=== PATIENT | female | born 1945 | race African-American/Black ===

== ENCOUNTER → 2016-12-06 | Outpatient (CLI) | payer OTHER ==
[~2016-12-06] MED LIST: ASPI-496 PO; FENTANYL PF 100 MCG/2ML ONE; GABA300C10 PO; HYDR1TAB12 PO; LISI40TA PO; METF500T4 PO; MIDAZOLAM 1 MG/ML, 5ML ONE; NAPR220C2 PO; OMEP40CA6 PO; SIMV20TA3 PO
== END | disposition home or self-care (01) ==
LOC: RAD 07:04
PROVIDERS: ATTEND Nurse Practitioner
DX: M54.12 Radiculopathy, cervical region (principal)
CPT/HCPCS: 99156; 99157; J2250; J3010

== ENCOUNTER 2018-09-26 08:12 | Outpatient (CLI) | payer OTHER ==
[~2018-09-26 08:12] MED LIST changes: -FENTANYL PF 100 MCG/2ML ONE; -HYDR1TAB12 PO; +HYDR1TAB13 PO; +METF500T17 PO; -METF500T4 PO; -MIDAZOLAM 1 MG/ML, 5ML ONE
== END 2018-09-26 23:59 | disposition home or self-care (01) ==
LOC: RAD 08:12
PROVIDERS: ATTEND Nurse Practitioner
DX: Z02.9 Encounter for administrative examinations, unspecified (principal)

== ENCOUNTER 2018-11-14 08:35 | Day surgery (SDC) | payer OTHER ==
[~2018-11-14] VITALS: Ht 172.7 cm; Wt 116.5 kg
[2018-11-14] MEDS ORDERED: LACTATED RINGERS 1,000 ML IV SCH (09:15)
[2018-11-14] MEDS ORDERED: HYDR-2440 PO (09:44)
[2018-11-14 09:45] VITALS: BP 145/83
[2018-11-14] MEDS ORDERED: ONDANSETRON 2MG/ML, 2ML ONE (10:19)
[2018-11-14] MEDS ORDERED: PROPOFOL 10 MG/ML, 20ML ONE (10:19)
[2018-11-14 10:26] LABS: ALANINE AMINOTRANSFERASE 30 U/L (12-78); ALBUMIN 3.5 g/dL (3.4-5.0); ANION GAP 7 mmol/L (5-15); CALCIUM 9.1 mg/dL (8.5-10.1); CHLORIDE 108 mmol/L (98-107); CREATININE 0.94 mg/dL (0.55-1.02)
[2018-11-14 10:28] LABS: ALKALINE PHOSPHATASE 42 U/L (45-117); BILIRUBIN,TOTAL 0.7 mg/dL (0.2-1.0); TOTAL PROTEIN 7.2 g/dL (6.4-8.2)
[2018-11-14] MEDS ORDERED: FENTANYL PF 100 MCG/2ML ONE (10:30)
[2018-11-14] MEDS ORDERED: MEPERIDINE/PF 25MG/0.5ML IVPush PRN (11:30)
[2018-11-14] MEDS ORDERED: FENTANYL PF 100 MCG/2ML IV PRN (11:30)
[2018-11-14] MEDS ORDERED: HYDROmorphone 2 MG/ML, 1ML IVPush PRN (11:30)
[2018-11-14] MEDS ORDERED: HALOPERIDOL 5 MG/ML IV PRN (11:30)
[2018-11-14] MEDS ORDERED: PROMETHAZINE 25 MG/ML, 1ML IV PRN (11:30)
[2018-11-14] MEDS ORDERED: OXYcodone 5 MG/5 ML ORAL.SOL UDC PO PRN (11:30)
[2018-11-14] MEDS ORDERED: ACETAMINOPHEN 325 MG TABLET PO PRN (11:30)
[2018-11-14] MEDS ORDERED: ALBUTEROL SULFATE 2.5 MG/3 ML NPPB PRN (11:30)
[2018-11-14] MEDS ORDERED: hydrALAzine 20 MG/ML, 1ML IV PRN (11:30)
== END 2018-11-14 12:15 | disposition home or self-care (01) ==
LOC: OUT 08:35 → EDSTATUS 10:15 → OUT 12:15
PROVIDERS: ATTEND Nurse Practitioner
DX: M47.812 Spondylosis without myelopathy or radiculopathy, cervical region (principal); M54.2 Cervicalgia; J44.9 Chronic obstructive pulmonary disease, unspecified; Z79.899 Other long term (current) drug therapy; Z88.6 Allergy status to analgesic agent
CPT/HCPCS: 72141; 80053; 82962; 93005; J2405; J2704; J3010; J7120

== ENCOUNTER 2019-10-29 09:37 | Day surgery (SDC) | payer MEDICARE, OTHER ==
[~2019-10-29] VITALS: Ht 172.7 cm; Wt 115.1 kg
[~2019-10-29 09:37] MED LIST changes: +HYDR-2440 PO; +OMEP40CA42 PO; -OMEP40CA6 PO; +SIMV20TA19 PO; -SIMV20TA3 PO
[2019-10-29] MEDS ORDERED: LACTATED RINGERS 1,000 ML IV SCH (10:09)
[2019-10-29] MEDS ORDERED: AMLO10TA8 PO (10:14)
[2019-10-29] MEDS ORDERED: flovent (10:14)
[2019-10-29] MEDS ORDERED: METF500T17 PO (10:14)
[2019-10-29] MEDS ORDERED: ALBU2.5V NEB (10:14)
[2019-10-29 10:16] VITALS: BP 138/84
[2019-10-29] MEDS ORDERED: CHLORHEXIDINE 15 ML UDC MM ONE (10:30)
[2019-10-29] MEDS ORDERED: MIDAZOLAM 1 MG/ML, 2ML ONE (11:24)
[2019-10-29] MEDS ORDERED: SUCCINYLCHOLINE 20 MG/ML, 10ML ONE (11:30)
[2019-10-29] MEDS ORDERED: PROPOFOL 10 MG/ML, 20ML ONE (11:30)
[2019-10-29] MEDS ORDERED: ONDANSETRON 2MG/ML, 2ML ONE (11:30)
[2019-10-29] MEDS ORDERED: ACETAMINOPHEN 325 MG TABLET PO PRN (13:00)
[2019-10-29] MEDS ORDERED: OXYcodone 5 MG/5 ML ORAL.SOL UDC PO PRN (13:00)
[2019-10-29] MEDS ORDERED: DIAZEPAM 5 MG/ML, 2ML IVPush PRN (13:00)
[2019-10-29] MEDS ORDERED: LABETALOL 5MG/ML, 20ML IV PRN (13:00)
[2019-10-29] MEDS ORDERED: FENTANYL PF 100 MCG/2ML IV PRN (13:00)
[2019-10-29] MEDS ORDERED: MEPERIDINE/PF 25MG/0.5ML IVPush PRN (13:00)
[2019-10-29] MEDS ORDERED: hydrALAzine 20 MG/ML, 1ML IV PRN (13:00)
[2019-10-29] MEDS ORDERED: PROMETHAZINE 25 MG/ML, 1ML IV PRN (13:00)
[2019-10-29] MEDS ORDERED: ALBUTEROL SULFATE 2.5 MG/3 ML NPPB PRN (13:00)
[2019-10-29] MEDS ORDERED: HYDROmorphone 2 MG/ML, 1ML IVPush PRN (13:00)
[2019-10-29] MEDS ORDERED: KETOROLAC 30 MG/1 ML IV PRN (13:00)
== END 2019-10-29 14:10 | disposition home or self-care (01) ==
LOC: RAD 09:37 → EDSTATUS 11:30 → OUT 14:10
PROVIDERS: ATTEND Nurse Practitioner
DX: M47.812 Spondylosis without myelopathy or radiculopathy, cervical region (principal); M48.02 Spinal stenosis, cervical region; M25.78 Osteophyte, vertebrae; I10 Essential (primary) hypertension; E11.9 Type 2 diabetes mellitus without complications; J44.9 Chronic obstructive pulmonary disease, unspecified; G47.30 Sleep apnea, unspecified; E66.01 Morbid (severe) obesity due to excess calories; Z79.84 Long term (current) use of oral hypoglycemic drugs; Z79.891 Long term (current) use of opiate analgesic; Z79.1 Long term (current) use of non-steroidal anti-inflammatories (NSAID); Z79.899 Other long term (current) drug therapy; Z98.1 Arthrodesis status
CPT/HCPCS: 72141; 93005; J0330; J2250; J2405; J2704; J7120; U0001